=== PATIENT | male | born 1970 | race Caucasian/White ===

== ENCOUNTER 2025-07-15 12:56 | Emergency (ER) | payer OTHER, SELFPAY ==
--- OUTSIDE RECORDS SUMMARY | 2025-07-14 16:15 | XMS_ITS | Encounter Summary ---
[facility] Address [address] [place] [address] Care Team Providers Care Body Shop Manager Name Role Phone Hilda Parnell MD Primary Care Provider Reason for Referral * Diagnostic Imaging (Routine) - Closed Specialty Diagnoses / Procedures Referred By Contac t Referred To Contact Radiology Diagnoses Acute bilateral low back pain without sciatica Procedures XR Spine Lumbar Complete With Flex & Ext Hilda Parnell MD [address] [place] [address] Phone: tel: fax: Referral ID Status Reason Start Date Expiration Date Visits Re quested Visits Authorized [id number] Closed 07/14/2025 10/13/2026 1 1 Reason for Visit * Reason Comments Establish Care Physical Encounter Details Date Type Department Care Team (Late st Contact Info) Description 07/14/2025 4:15 PM EST Office Visit [facility] [address] [place] [address] [place] [address] Hilda Parnell MD [address] [place] [address] Acute bilateral low back pain without sciatica (Primary Dx); Annual physical exam; Prostate cancer screening Social History Tobacco Use Types Packs/Day Years Used Date Smoking Tobacco: Former Cigarettes 0.3 4 1 996 - 2000 Smokeless Tobacco: Former Snuff Quit: 2013 Alcohol Use Standard Drinks/Week Comments Yes 0 (1 standard drink = 0.6 oz pur e alcohol) Social PHQ-2 Answer Date Recorded Retired PHQ-9: Brief Depression Severity Measure Score 1 09/18/2022 PHQ-2 Answer Date Recorded Patient Health Questionnaire-2 Score 0 07/14/2025 Sex and Gender Information Value Date Recorded Sex Assigned at Male 07/13/2025 5:53 PM EST Legal Sex Male 1:12 PM EDT Gender Identity Not on file Sexual Orientation Not on file 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 file Not on file Not on file documented as of this encounter Last Filed Vital Signs Vital Sign Reading Time Taken Comments Blood Pressure 140/90 07/14/2025 3:59 PM EST Pulse 53 07/14/2025 3:59 PM EST Temperature 37 C (98.6 F) 07/14/2025 3:59 PM EST Respiratory Rate - - Oxygen Saturation 98% 07/14/2025 3:59 PM EST Inhaled Oxygen Concentration - - Weight 109 kg (240 lb) 07/14/2025 3:59 PM EST Height 185.4 cm (6' 1 ) 07/14/2025 3:59 PM EST Body Mass Index 31.66 07/14/2025 3:59 PM EST documented in this encounter Functional Status documented as of this encounter Plan of Treatment Pending Results Name Type Priority Associated Diagnoses Date /Time XR Spine Lumbar Complete With Flex & Ext Imaging Routine Acute bilateral low back pain without sciatica 07/14/2025 4:26 PM EST Scheduled Orders Name Type Priority Associated Diagnoses Orde r Schedule XR Spine Lumbar Complete With Flex & Ext Imaging Routine Acute bilateral low back pain without sciatica Expected: 07/17/2025, Expires: 10/12/2026 CBC & Differential Lab Panel Routine Annual physical exam Expected: 07/19/2025, Expires: 10/12/2026 Comprehensive Metabolic Panel Lab Routine Annual physical exam Expected: 07/19/2025, Expires: 10/12/2026 TSH Lab Routine Annual physical exam Expected: 07/19/2025, Expires: 10/12/2026 Hemoglobin A1c Lab Routine Annual physical exam Expected: 07/19/2025, Expires: 10/12/2026 Lipid Panel Lab Routine Annual physical exam Expected: 07/19/2025, Expires: 10/12/2026 PSA SCREENING Lab Routine Prostate cancer screening Expected: 07/19/2025 (Approximate), Expires: 10/12/2026 documented as of this encounter Visit Diagnoses Diagnosis Acute bilateral low back pain without sciatica- Primary Annual physical exam Routine general medical examination at a health care facility Prostate cancer screening Special screening for malignant neoplasm of prostate documented in this encounter Additional Health Concerns Assessment Noted Time PHQ-2 Depression Total Score: 1 09/18/19 23 4:07 PM EST documented as of this encounter Care Teams Body Shop Manager Relationship Specialty Start Date End Date Hilda Parnell MD [facility] [place] [address] PCP - General Family Medicine 07/14/25 documented as of this encounter
--- OUTSIDE RECORDS SUMMARY | 2025-07-14 16:20 | XMS_ITS | Encounter Summary ---
[facility] Address [address] [place] [address] Care Team Providers Care Culinary Art Teacher Name Role Phone Hilda Parnell MD Primary Care Provider Reason for Visit * Diagnostic Imaging (Routine) - Closed Specialty Diagnoses / Procedures Referred By Contac t Referred To Contact Radiology Diagnoses Acute bilateral low back pain without sciatica Procedures XR Spine Lumbar Complete With Flex & Ext Hilda Parnell MD [address] [place] [address] Phone: tel: fax: Referral ID Status Reason Start Date Expiration Date Visits Re quested Visits Authorized [id number] Closed 07/14/2025 10/13/2026 1 1 Encounter Details Date Type Department Care Team (Latest Contact Info) Description 07/14/2025 4:20 PM EST Ancillary Procedure [facility] [address] [place] [address] [place] [id number] Acute bilateral low back pain without sciatica Social History Tobacco Use Types Packs/Day Years [...] 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 file Not on file Not on file documented as of this encounter Functional Status documented as of this encounter Plan of Treatment Pending Results Name Type Priority Associated Diagnoses Date /Time XR Spine Lumbar Complete With Flex & Ext Imaging Routine Acute bilateral low back pain without sciatica 07/14/2025 4:26 PM EST documented as of this encounter Visit Diagnoses Diagnosis Acute bilateral low back pain without sciatica documented in this encounter Additional Health Concerns Assessment Noted Time PHQ-2 Depression Total Score: 1 09/18/19 23 4:07 PM EST documented as of this encounter Care Teams Culinary Art Teacher Relationship Specialty Start Date End Date Hilda Parnell MD [facility] [employer] [place] [place] [address] PCP - General Family Medicine 07/14/25 documented as of this encounter
[2025-07-15 13:06] VITALS: BP 192/122; PULSE 68; RESP 20; TEMP 36.8; O2SAT 98; BMI 31.6
--- OUTSIDE RECORDS SUMMARY | 2025-07-15 13:07 | XMS_ITS | Clinical Summary ---
Author Organization [facility] Address [address] [place] [address] Care Team Providers Care Rib Knitter Name Role Phone No, Pcp DOUGH MACHINE OPERATOR Primary Care Provider Unavailabl e Allergies No known active allergies Medications No known medications Social History Tobacco Use Types Packs/Day Years Used Date Smoking Tobacco: Former Smokeless Tobacco: Never Sex and Gender Information Value Date Recorded Sex Assigned at Not on file Legal Sex Male 4:55 PM EST Gender Identity Not on file Sexual Orientation Not on file Last Filed Vital Signs Vital Sign Reading Time Taken Comments Blood Pressure 116/72 07/22/2018 10:41 AM EST Pulse 72 07/22/2018 10:41 AM EST Temperature 36.2 C (97.2 F) 07/22/2018 10:41 AM EST Respiratory Rate - - Oxygen Saturation 98% 07/22/2018 10:41 AM EST Inhaled Oxygen Concentration - - Weight - - Height - - Body Mass Index - - Plan of Treatment Not on file Medical Devices Not on file Insurance [facility] Care Teams Rib Knitter Relationship Specialty Start Date End Date No, Pcp, DOUGH MACHINE OPERATOR N/A Do not use PCP - General Family Medicine 07/22/18
--- OUTSIDE RECORDS SUMMARY | 2025-07-15 13:07 | XMS_ITS | Clinical Summary ---
[facility] Address [address] [place] [address] Care Team Providers Care Ccna Name Role Phone Hilda Parnell MD Primary Care Provider Allergies No known active allergies Medications promethazine-dex tromethorphan (PROMETHAZINE-DM ) 6.25-15 MG/5ML syrupIndications :Lower respiratory infection Take 5 mL by mouth 4 (Four) Times a Day As Needed for Cough. 240 mL 12/10/19 25 Active albuterol sulfate HFA 108 (90 Base) MCG/ACT inhalerIndicatio ns:Lower respiratory infection Inhale 2 puffs Every 4 (Four) Hours As Needed for Wheezing or Shortness of Air (or cough you cannot get under control). 18 g 12/16/19 25 Active ipratropium-albu terol (COMBIVENT RESPIMAT) 20-100 MCG/ACT inhalerIndicatio ns:Acute lower respiratory tract infection Inhale 1 puff 4 (Four) Times a Day As Needed for Wheezing or Shortness of Air. 4 g 12/16/19 25 Active Beclomethasone Diprop HFA (QVAR Redihaler) 80 MCG/ACT inhalerIndicatio ns:Moderate persistent reactive airway disease with acute exacerbation 2 puffs bid 1 each 01/08/20 25 Active guaiFENesin (MUCINEX) 600 MG 12 hr tabletIndication s:Acute lower respiratory tract infection Take 2 tablets by mouth 2 (Two) Times a Day. 40 tablet 12/16/19 25 025 Discontinue d(Patient Reported Not Taking) predniSONE (DELTASONE) 10 MG tabletIndication s:Moderate persistent reactive airway disease with acute exacerbation 1-2 po daily for 5 days 10 tablet 01/08/20 25 025 Discontinue d(Patient Reported Not Taking) Active Problems Problem Noted Date Diagnosed Date Flu vaccine need 05/24/2024 Elevated ALT measurement 09/18/2022 Chronic midline low back pain without sciatica 0 09/18/2022 Annual physical exam 10/03/2020 Overview (10/03/2020): Added automatically from request for surgery [id number] Allergic rhinitis 03/28/2016 Herpes zoster 02/29/2016 Resolved Problems Problem Noted Date Diagnosed Date Resolved Date Preop examination 11/22/2020 09/18/2022 Overview (11/22/2020): Added automatically from request for surgery [id number] Acute medial meniscus tear of right knee 11/06/2020 09/18/2022 Acute URI 06/11/2016 09/18/2022 Finding of body mass index 02/29/2016 0 09/18/2022 Encounters Date Type Department Care Team Description 07/14/2025 4:20 PM EST Ancillary Procedure [facility] [address] [place] [id number] Acute bilateral low back pain without sciatica 07/14/2025 4:15 PM EST Office Visit [facility] [address] [place] [phone] Hilda Parnell MD Acute bilateral low back pain without sciatica (Primary Dx); Annual physical exam; Prostate cancer screening 07/14/2025 Travel from Last 3 Months Immunizations Immunization Administration Dates Next Due Flublok 18+yrs 10/19/2023 Fluzone >6mos 04/27/2025,05/24/2024 Fluzone (or Fluarix & Flulav al for VFC) >6mos 05/28/2023,05/26/2022,04/19/2020,2017 Hepatitis A 11/10/2018,05/12/2018 Influenza, Unspecified 05/26/2022 Shingrix 08/02/2021 Tdap 04/19/2020 Family History Medical History Relation Name Comments Colon polyps Father Heart disease Father Colon polyps Mother Heart disease Mother Lung disease Mother Obesity Mother COPD Other Hyperlipidemia Other Hypertension Other Osteoarthritis Other Osteoporosis Other Rheum arthritis Other Cancer Sister Celiac disease Sister Diabetes Sister Heart disease Sister Obesity Sister Colon cancer Neg Hx Relation Name Status Comments Brother Alive Father Alive Maternal Grandfather Maternal Grandmother Mother Alive Other Paternal Grandfather Paternal Grandmother Sister Alive Social History Tobacco Use Types Packs/Day Years [...] 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 Not on file Not on file Last Filed Vital Signs Vital Sign Reading Time Taken Comments Blood Pressure 140/90 07/14/2025 3:59 PM EST Pulse 53 07/14/2025 3:59 PM EST Temperature 37 C (98.6 F) 07/14/2025 3:59 PM EST Respiratory Rate 16 01/07/2025 9:36 AM EDT Oxygen Saturation 98% 07/14/2025 3:59 PM EST Inhaled Oxygen Concentration - - Weight 109 kg (240 lb) 07/14/2025 3:59 PM EST Height 185.4 cm (6' 1 ) 07/14/2025 3:59 PM EST Body Mass Index 31.66 07/14/2025 3:59 PM EST Plan of Treatment Health Maintenance Due Date Last Done Comments Pneumococcal Vaccine 50+ (1 of 2 - PCV) 1988 COLOGUARD 2014 COLON CANCER SCREENING 5 YEA R SIGMOIDOSCOPY [address] COLONOGRAPHY 2014 FECAL OCCULT BLOOD TEST 2014 FIT Testing (1 year) 2014 ZOSTER VACCINE (2 of 2) 09/27/2021 08/02/2021 ANNUAL PHYSICAL 07/14/2026 07/14/2025, 09/03, 04/23/2021, Additional history exists TDAP/TD VACCINES (2 - Td or Tdap) 04/19/2030 020 COLONOSCOPY 10/30/2030 10/30/2020, 10/30/2020 COLORECTAL CANCER SCREENING 10/30/2030 HEPATITIS C SCREENING Completed 04/20/2020 INFLUENZA VACCINE Completed 04/27/2025, , 10/19/2023, Additional history exists Procedures Procedure Name Priority Date/Time Associated Diagnosis Comments COLONOSCOPY 10/30/2020 11:31 AM EDT HEPATITIS C ANTIBODY Routine 04/20/2020 8:09 AM EDT Annual physical exam from Last 3 Months or Most Recently Relevant to Health Maintenance Results * COLONOSCOPY (10/30/2020 11:31 AM EDT) us Moriah Mathew MD INTERFACE NEEDS Final Re sult * Hepatitis C Antibody (04/20/2020 8:09 AM EDT) Hep C Virus Ab <0.1 0.0 - 0.9 s/co ratio [facility] Comment: Negative: < 0.8 Indeterminate: 0.8 - 0.9 Positive: > 0.9 The CDC recommends that a positive HCV antibody result be followed up with a HCV Nucleic Acid Amplification test (597270). Blood 04/20/2020 8:09 AM EDT 04/20/2020 Narrative [facility]) - 04/21/2020 5:07 AM EDT Performed at: [facility] [id number] [employer] Traction Line Worker: Jordon Segovia PhD, Phone: [phone] Patient Fasting: Y us Carlitos Lea MD LAB BLOOD ORDERABLES Final Resul t [facility]) [address] [place] [address], [place] [phone] [facility] [address] [place] [address], [place] [phone] from Last 3 Months or Most Recently Relevant to Health Maintenance [place] [address] [facility] Member Subscriber Plan / Payer (Ef fective 2024-Present) Name:Jeff Myles Relation to Subscriber:Self Name:Jeff Myles Payer ID:[id number] (NAIC) Type:POS Address: [facility] [id number] [address] [employer]ER[employer] Care Teams Ccna Relationship Specialty Start Date End Date Hilda Parnell MD [address] [place] [address] PCP - General Family Medicine 07/14/25
--- OUTSIDE RECORDS SUMMARY | 2025-07-15 13:07 | XMS_ITS | Encounter Summary ---
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
--- OUTSIDE RECORDS SUMMARY | 2025-07-15 13:07 | XMS_ITS | Encounter Summary ---
[facility] Address [address] [place] [address] Care Team Providers Care Senior Production Manager Name Role Phone Hilda Parnell MD Primary Care Provider Encounter Details Date Type Department Care Team (Late st Contact Info) Description 12/15/2024 Results Follow-Up [facility] - [address] [phone] Maxine Bonilla, STORE ADMINISTRATOR [address] [place] [address] Social History Tobacco Use Types Packs/Day Years Used Date Smoking Tobacco: Former Cigarettes 0.3 4 1 996 - 2000 Smokeless Tobacco: Former Snuff Quit: 2014 Alcohol Use Standard Drinks/Week Comments Yes 0 (1 standard drink = 0.6 oz pur e alcohol) Social PHQ-2 Answer Date Recorded Retired PHQ-9: Brief Depression Severity Measure Score 1 09/18/2022 PHQ-2 Answer Date Recorded Retired PHQ-9: Brief Depression Severity Measure Score 1 09/18/2022 Sex and Gender Information Value Date Recorded Sex Assigned at Male 07/13/2025 5:53 PM EST Legal Sex Male 1:12 PM EDT Gender Identity Not on file Sexual Orientation Not on file 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 Not on file Not on file documented as of this encounter Plan of Treatment Not on file documented as of this encounter Visit Diagnoses Not on filedocumented in this encounter Additional Health Concerns Infection Onset Date Last Indicated Resolved Time COVID (rule out) 12/15/2024 12/15/2024 12/15/2024 12:04 PM EDT Assessment Noted Time PHQ-2 Depression Total Score: 1 09/18/19 23 4:07 PM EST documented as of this encounter Care Teams Senior Production Manager Relationship Specialty Start Date End Date Hilda Parnell MD [facility] [address] [place] [address] PCP - General Family Medicine 07/14/25 documented as of this encounter
--- NOTE | 2025-07-15 13:49 | XR_ITS ---
PROCEDURE INFORMATION: Exam: XR Left Hand Exam date and time: 07/15/2025 1:53 PM Age: 54 years old Clinical indication: Injury or trauma; Other: Cut; Laceration; Left; Ring finger; Injury details: Stitches in 4th digit; Additional info: Saw injury 3rd 4th distal phalynx TECHNIQUE: Imaging protocol: Radiologic exam of the left hand. Views: 3 or more views. COMPARISON: No relevant prior studies available. FINDINGS: Bones/joints: Normal. Soft tissues: Normal. IMPRESSION: No acute findings.
--- NOTE | 2025-07-15 13:55 | ED_ITS ---
Discharge Plan Disposition Chief Complaint: Wound/Laceration Prescriptions Prescriptions: No Action sulfamethoxazole-trimethoprim 1 EACH tablet 1 each PO BID 10 Days Qty: 20 0RF Referrals Follow up/Referrals: Provider,Referral, [Primary Care Provider, Medical] - See instructions Clinical Impressions Clinical Impression: Finger laceration Instructions Patient Instructions: DI for Laceration Repair Print Language Print Language: Turkish Discharge ED Provider: Iveth Rawls General Adult HPI General Chief complaint: Wound/Laceration Stated complaint: left hand/fingers laceration Time Seen by Provider: 07/15/25 13:18 Mode of Arrival: Ambulatory Source of Information: Patient Description of Symptoms (Recalled from ER Triage Doc. by RN): tj presents for laceration on his left ring finger and left middle finer. patient was helping his father do some house work when a saw came back and cut his finger to the bone. History of Present Illness HPI narrative: Patient is a 54-year-old gentleman presenting today with a laceration to his left ring and middle finger after an injury with a saw. Up-to-date on his tetanus vaccinations states that initially thought that he saw bone coming through his finger. No difficulty with movement still has sensation in his fingers. Related Data Previous Rx's ?Medication ?Instructions ?Recorded sulfamethoxazole 800 1 each PO BID 10 days #20 ta bs 02/28/18 mg-trimethoprim 160 mg tablet Allergies Allergy/AdvReac Type Severity Reaction Status Date / Time No Known Allergies Allergy Verified 02/28/18 14:30 [facility] Disclaimer: The information contained in this section may have been updated after the patient was seen, as this information can be updated by other users. Social History Smoking Status: Never smoker alcohol intake: never current occupational status: other Travel in the last 8 weeks?: None ROS Obtained: Yes All systems reviewed & no additional complaints except as documented Physical Exam General General appearance: alert and in no apparent distress Respiratory Respiratory exam: Present normal lung sounds bilaterally Cardiovascular Cardiovascular exam: Present regular rate Extremities Exam Extremities exam: Present other (Patient's fourth digit has a macerated laceration over the ulnar and distal tip of the distal phalanx there is a small laceration over the volar fat pad superficial on the long finger as well) Neurological Exam Neurological exam: Present alert and oriented X3 Medical Decision Making Medical Records Screening: Per USPSTF and CDC recommendations, given the prevalence of disease in our region, it is our hospital?s policy to screen for HIV and viral Hepatitis for all patients aged 18 and over and those with ongoing risk factors. [place] Inquiry Pt receiving controlled substance: No Vital Signs: 07/15/25 13:06 Temperature 98.2 F Temperature Source Oral Pulse Rate [Right Radial] 68 Respiratory Rate 20 Blood Pressure [Right Arm] 192/122 H Blood Pressure Mean [Right Arm] 145 Blood Pressure Source [Right Arm] Automatic Cuff Blood Pressure Position [Right Arm] Sitting 02 Sat by Pulse Oximetry 98 Oxygen Delivery Method Room Air Orders (Tests/Meds): ED MEDICATIONS Discontinued Medications Generic Name Dose Route Start Last Admin Trade Name Freq PRN Reason Stop Dose Admin Neomycin/Polymyxin/Bacitracin 1 each 07/15/25 13:52 Neosporin Ointment 0.9gm Udp TP 07/15/25 13:53 ONCE ONE ORDERS Category Date Time Status Hand XR left minimum 3 views [XR hand LT min 3V] Stat Exams 07/15/25 13:49 Taken Medical Decision Narrative: Patient is a 54-year-old with above history and physical. Plain film performed to person interpreted shows no evidence of any bony involvement. Patient is up-to-date on his tetanus vaccination. Patient did have significant tissue loss on the fourth digit but this was revised and approximated well. Nylon sutures were placed. Given the fact that there is some tension on this wound will have him have this reevaluated in 10 days to have the sutures removed at that point. The laceration on his long finger was closed using Dermabond. Return precautions emphasized no indication for any prophylactic antibiotics patient was discharged in stable condition. Procedures Laceration Laceration 1: Site: finger Side (If applicable): left Size (cm): 1 Description: linear Depth: simple, single layer Skin layer closed with: Dermabond Laceration 2: Site: finger Side (If applicable): left Size (cm): 2 Description: linear and irregular Depth: simple, single layer and involves subcutaneous layer Local Anesthetic: lidocaine 1% and with epi Amount of anesthesia used (mL): 8 (Digital block) Pre-repair: wound explored, irrigated extensively, extensive debridement and wound margins revised Skin layer closed with: nylon Size (cm): 4-0 Number of sutures: 7 Technique: simple, interrupted Critical Care Critical Care Time Critical Care Time: No
[2025-07-15] MEDS: NEOSPORIN OINTMENT 0.9GM UDP 1 EACH TP (14:08)
[2025-07-15 14:09] VITALS: BP 154/78; PULSE 80; RESP 20; TEMP 36.8; O2SAT 98
== END 2025-07-15 14:13 | disposition home or self-care (01) ==
PROVIDERS: Emergency Provider Student in an Organized Health Care Education/Training Program
DX: S61.215A Laceration without foreign body of left ring finger without damage to nail, initial encounter (principal); S61.213A Laceration without foreign body of left middle finger without damage to nail, initial encounter; W31.2XXA Contact with powered woodworking and forming machines, initial encounter
CPT/HCPCS: 12002; 73130; 99282; 99283; J2004